=== PATIENT | male | born 1950 | race Caucasian/White ===

== ENCOUNTER 2021-07-30 08:28 | Outpatient (CLI) | payer MEDICARE, SELFPAY ==
--- NOTE | 2021-07-30 11:30 | NEURO_ITS ---
Impression: # Complains of right hand numbness. # Right Carpal Tunnel Syndrome. # No ulnar neuropathy. # Normal needle/EMG exam. # Clinical correlation recommended. Nerve Conduction Studies Anti Sensory Summary Table Stim Site NR Peak (ms) P-T Amp (?V) Site1 Site2 Delta-P (ms) Dist (cm) Omid (m/s) Right Median Anti Sensory (2-3nd Digit) Wrist 3.8 35.6 Wrist 2-3nd Digit 3.8 14.0 37 Wrist 6.4 49.8 Wrist 2-3nd Digit 3.8 14.0 37 Right Radial Anti Sensory (Base 1st Digit) Wrist 2.2 5.4 Wrist Base 1st Digit 2.2 0.0 Right Ulnar Anti Sensory (5th Digit) Wrist 2.8 6.9 Wrist 5th Digit 2.8 14.0 50 Motor Summary Table Stim Site NR Onset (ms) O-P Amp (mV) Site1 Site2 Delta-0 (ms) Dist (cm) Omid (m/s) Right Median Motor Run #2 (Abd Poll Brev) Wrist 3.9 1.2 Elbow Wrist 6.3 30.0 48 Elbow 10.2 1.7 Right Ulnar Motor (Abd Dig Minimi) Wrist 2.8 4.9 A Elbow Wrist 5.2 30.0 58 A Elbow 8.0 3.2 F Wave Studies NR F-Lat (ms) L-R F-Lat (ms) Right Median (Mrkrs) (Abd Poll Brev) 32.35 Right Ulnar (Mrkrs) (Abd Dig Min) 29.36 EMG Side Muscle Nerve Root Ins Act Fibs Amp Dur Recrt Comment Right 1stDorInt Ulnar C8-T1 Nml Nml Nml Nml Nml Right Ext Indicis Radial (Post Int) C7-8 Nml Nml Nml Nml Nml Right Ext Digitorum Radial (Post Int) C7-8 Nml Nml Nml Nml Nml Right BrachioRad Radial C5-6 Nml Nml Nml Nml Nml Right PronatorTeres Median C6-7 Nml Nml Nml Nml Nml Right Abd Poll Brev Median C8-T1 Nml Nml Nml Nml Nml Right [place] Radial C7-8 Nml Nml Nml Nml Nml Right Abd Poll Long Radial (Post Int) C7-8 Nml Nml Nml Nml Nml Right Biceps Musculocut C5-6 Nml Nml Nml Nml Nml Right Triceps Radial C6-7-8 Nml Nml Nml Nml Nml Right ABD Dig Min Ulnar C8-T1 Nml Nml Nml Nml Nml MTDD
== END 2021-07-30 08:29 | disposition home or self-care (01) ==
PROVIDERS: PCP Internal Medicine; Visit Provider Internal Medicine
DX: R20.2 Paresthesia of skin (principal); G56.01 Carpal tunnel syndrome, right upper limb
CPT/HCPCS: 95886; 95909

== ENCOUNTER 2023-07-13 09:54 | Outpatient (CLI) | payer MEDICARE, SELFPAY ==
--- NOTE | 2023-07-13 11:00 | NEURO_ITS ---
Impression: # Complains of numbness of right hand. ? # Right Carpal Tunnel Syndrome # Right ulnar neuropathy across the elbow. ? # Needle/EMG exam mildly abnormal. Nerve Conduction Studies Anti Sensory Summary Table Stim Site NR Peak (ms) P-T Amp (?V) Site1 Site2 Delta-P (ms) Dist (cm) Omid (m/s) Right Median Anti Sensory (2-3nd Digit) Wrist 5.1 20.9 Wrist 2-3nd Digit 5.1 14.0 27 Wrist 5.3 9.0 Wrist 2-3nd Digit 5.1 14.0 27 Right Radial Anti Sensory (Base 1st Digit) Wrist 2.4 13.2 Wrist Base 1st Digit 2.4 0.0 Right Ulnar Anti Sensory (5th Digit) Wrist 2.7 22.4 Wrist 5th Digit 2.7 14.0 52 Motor Summary Table Stim Site NR Onset (ms) O-P Amp (mV) Site1 Site2 Delta-0 (ms) Dist (cm) Omid (m/s) Right Median Motor (Abd Poll Brev) Wrist 4.1 4.2 Elbow Wrist 6.0 29.0 48 Elbow 10.1 3.3 Right Ulnar Motor (Abd Dig Minimi) Wrist 2.6 4.8 A Elbow Wrist 6.4 30.0 47 A Elbow 9.0 2.6 B Elbow Wrist 3.8 20.0 53 B Elbow 6.4 3.7 F Wave Studies NR F-Lat (ms) L-R F-Lat (ms) Right Median (Mrkrs) (Abd Poll Brev) 31.07 Right Ulnar (Mrkrs) (Abd Dig Min) 30.53 EMG Side Muscle Nerve Root Ins Act Fibs Amp Dur Recrt Comment Right 1stDorInt Ulnar C8-T1 Nml Nml Nml >12ms Reduced Right Ext Indicis Radial (Post Int) C7-8 Nml Nml Nml Nml Nml Right Ext Digitorum Radial (Post Int) C7-8 Nml Nml Nml Nml Nml Right BrachioRad Radial C5-6 Nml Nml Nml Nml Nml Right PronatorTeres Median C6-7 Nml Nml Nml Nml Nml Right Abd Poll Brev Median C8-T1 Nml Nml Nml >12ms Reduced Right ABD Dig Min Ulnar C8-T1 Nml Nml Nml >12ms Reduced MTDD
== END 2023-07-13 09:55 | disposition home or self-care (01) ==
LOC: ANHNEURO 09:55
PROVIDERS: PCP Physician Assistant Medical; Visit Provider Physician Assistant Medical
DX: G56.01 Carpal tunnel syndrome, right upper limb (principal); G56.21 Lesion of ulnar nerve, right upper limb
CPT/HCPCS: 95886; 95909